=== PATIENT | female | born 2000 | race African-American/Black ===

== ENCOUNTER 2020-01-12 01:13 | Emergency (ER) | payer OTHER, MEDICAID ==
--- NOTE | 2020-01-12 01:48 | EDM.PDOCBH ---
ED HPI GENERAL MEDICAL PROBLEM - General Chief Complaint: Behavioral/Psych Stated Complaint: [facility] Time Seen by Provider: 01/12/20 01:21 Source of Information: Reports: Patient History Limitations: Reports: No Limitations - History of Present Illness INITIAL COMMENTS - FREE TEXT/NARRATIVE: Ms. Bartholomew is a pleasant 19-year-old woman with a past medical history significant for depression, social anxiety, and ADHD, who is now brought to the ED by EMS for a suicide attempt. 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 She is living on her own while out here and states that her aloneness has given her more time to think about suicide. She states that she took 7 or 8 tablets of her prescribed guanfa cine around 22:30 this evening. She states directly that she did so "to try to kill myself". She states that she then met with some friends who noticed that she seemed depressed, therefore they recommended that they go to a comedy show, which she did. She states that the combination of did not share her up. When she returned home, she states that she then texted her friends and parents about what she did. A friend subsequently called 911. The patient states that she has attempted suicide about 6 times in the past, primarily by taking an overdose of pills, but also by cutting. She has not, however, ever been psychiatrically hospitalized. Here in the ED, the patient is found to be hemodynamically stable, afebrile, saturating 99% on room air. Other than her psychiatric issues, the patient denies recent fever, chills, sore throat, ear pain, nasal or sinus congestion, cough, dyspnea, chest pain, palpitations, nausea, vomiting, constipation, diarrhea, abdominal pain, urinary symptoms, recent weight gain or weight loss, recent bloody bowel movements or black bowel movements, recent joint aches, headaches, or rashes. The patient's PCP and counselor are in [place]. She does not have a PCP or counselor in this area. Chest Pain Score (Numeric/FACES): 6 - Related Data Allergies Allergy/AdvReac Type Severity Reaction Status Date / Time No Known Allergies Allergy Verified 01/12/20 01:25 Home Meds: Home Meds Melatonin 5 mg PO BEDTIME 01/12/20 [History] QUEtiapine Fumarate [Seroquel] 25 mg PO BEDTIME 01/12/20 [History] guanFACINE 4 mg PO DAILY 01/12/20 [History] Past Medical History Psychiatric History: Reports: ADHD, Anxiety, Depression Social & Family History - Tobacco Use Smoking Status *Q: Never Smoker Second Hand Smoke Exposure: No - Caffeine Use Caffeine Use: Reports: Coffee, Soda - Alcohol Use Alcohol Use History: No - Recreational Drug Use Recreational Drug Use: No - Living Situation & Occupation Living situation: Reports: Single, Alone 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 ED EXAM, BEHAVIORAL HEALTH - Physical Exam Exam: See Below Exam Limited By: No Limitations General Appearance: Alert, WD/WN, No Apparent Distress Eye Exam: Bilateral Eye: EOMI, Normal Inspection Ears: Normal External Exam, Hearing Grossly Normal Nose: Normal Inspection Throat/Mouth: Normal Inspection, Normal Lips, Normal Voice, No Airway Compromise Head: Atraumatic, Normocephalic Neck: Normal Inspection, Full Range of Motion Respiratory/Chest: No Respiratory Distress, Lungs Clear, Normal Breath Sounds, No Accessory Muscle Use Cardiovascular: Normal Peripheral Pulses, Regular Rate, Rhythm, No Edema, No Gallop, No JVD, No Murmur, No Rub GI/Abdominal: Normal Bowel Sounds, Soft, Non-Tender, No Organomegaly, No Distention, No Abnormal Bruit, No Mass (Female) Exam: Deferred Rectal (Female) Exam: Deferred Back Exam: Normal Inspection, Full Range of Motion, NT Extremities: Normal Range of Motion, No Pedal Edema, Normal Capillary Refill, Other (Several well-healed short and narrow tangential linear scars on the dorsal aspect of both of her forearms) Neurological: Alert, Normal Cognition, No Motor/Sensory Deficits, Oriented x 3 Psychiatric: Normal Affect Skin Exam: Warm, Dry, Intact, Normal color, No rash EKG INTERPRETATION EKG Date: 01/12/20 Time: 01:19 Rhythm: NSR (with respiratory variation) Rate (Beats/Min): 70 [place]: Normal P-Wave: Present QRS: Normal ST-T: Normal QT: Normal Comparison: NA - No Prior EKG COURSE, BEHAVIORAL HEALTH COMP - Course Vital Signs: Last Vital Signs Temp 36.3 C 07/24/20 08:27 Pulse 55 L 01/12/20 08:27 Resp 12 01/12/20 08:27 BP 111/75 01/12/20 08:27 Pulse Ox 98 01/12/20 08:27 Orthostatic Blood Pressure [ 86/50 Standing] Orthostatic Blood Pressure [ 103/72 Sitting] Orthostatic Blood Pressure [ 111/80 Supine] Orders, Labs, Meds: Active Orders 24 hr Category Date Time Status EKG Documentation Completion [RC] STAT Care 01/12/20 01:28 Active Orthostatic Vital Signs [RC] STAT Care 01/12/20 08:18 Active FE, TIBC, TRANSFERRIN, FE SAT [CHEM] Stat Lab 01/12/20 08:36 Received FERRITIN [CHEM] Stat Lab 01/12/20 08:36 Received FOLIC ACID [CHEM] Stat Lab 01/12/20 08:36 Received LACTATE DEHYDROGENASE,LDH [CHEM] Stat Lab 01/12/20 08:36 Received VITAMIN B12 [CHEM] Stat Lab 01/12/20 08:36 Received Laboratory Tests 01/12/20 01/12/20 01/12/20 Range/Units 02:05 02:05 02:05 WBC 9.29 (3.98-10.04) K/mm3 RBC 3.61 L (3.98-5.22) M/mm3 Hgb 7.6 L (11.2-15.7) gm/dl Hct 25.8 L (34.1-44.9) % MCV 71.5 L (79.4-94.8) fl MCH 21.1 L (25.6-32.2) pg MCHC 29.5 L (32.2-35.5) g/dl RDW Std Deviation 42.7 (36.4-46.3) fL Plt Count 680 H (182-369) K/mm3 MPV 8.9 L (9.4-12.3) fl Neutrophils % (Manual) 73 H (40-60) % Band Neutrophils % 1 (0-10) % Lymphocytes % (Manual) 24 (20-40) % Atypical Lymphs % 0 % Monocytes % (Manual) 2 (2-10) % Eosinophils % (Manual) 0 L (0.7-5.8) % Basophils % (Manual) 0 L (0.1-1.2) Platelet Estimate Marked inc Plt Morphology Comment Normal Hypochromasia 2+ moderate Microcytosis 2+ moderate Target Cells 1+ slight Ovalocytes 1+ slight [place] Cells 1+ slight RBC Morph Comment Not Reportable Percent Retic (0.50-1.70) % Sodium 138 (136-145) mEq/L Potassium 3.3 L (3.5-5.1) mEq/L Chloride 102 (98-107) mEq/L Carbon Dioxide 27 (21-32) mEq/L Anion Gap 12.3 (5-15) BUN 12 (7-18) mg/dL Creatinine 0.7 (0.55-1.02) mg/dL Est Cr Clr Drug Dosing 111.62 mL/min Estimated GFR (MDRD) > 60 (>60) mL/min BUN/Creatinine Ratio 17.1 (14-18) Glucose 100 (74-106) mg/dL Calcium 8.6 (8.5-10.1) mg/dL Total Bilirubin 0.2 (0.2-1.0) mg/dL AST 42 H (15-37) U/L ALT 50 (14-59) U/L Alkaline Phosphatase 115 (46-116) U/L Total Protein 8.1 (6.4-8.2) g/dl Albumin 3.6 (3.4-5.0) g/dl Globulin 4.5 gm/dL Albumin/Globulin Ratio 0.8 L (1-2) TSH 3rd Generation 2.213 (0.516-4.13) uIU/mL Urine HCG, Qual (NEGATIVE) Salicylates 0.7 L (2.8-20) mg/dL Urine Opiates Screen (QNVXQF=694) Ur Buprenorphine Scrn (CUTOFF=10) Ur Oxycodone Screen (EKU4GY=549) Urine Methadone Screen (LBRNJM=527) Ur Propoxyphene Screen (WSVAAB=993) Acetaminophen 0 L (10-30) ug/mL Ur Barbiturates Screen (VFZUYV=614) Ur Tricyclics Screen (FRGMWS=654) Ur Phencyclidine Scrn (CUTOFF=25) Ur Amphetamine Screen (HKSOPJ=216) U Methamphetamines Scrn (ZDGNFB=884) U Benzodiazepines Scrn (GFAJIT=495) U Cocaine Metab Screen (GCUEAC=190) U Marijuana (THC) Screen (CUTOFF=50) Ethyl Alcohol 0.00 (0.00) gm% COVID-19 (MUNA) (NEGATIVE) 01/12/20 01/12/20 01/12/20 Range/Units 02:10 02:10 02:10 WBC (3.98-10.04) K/mm3 RBC (3.98-5.22) M/mm3 Hgb (11.2-15.7) gm/dl Hct (34.1-44.9) % MCV (79.4-94.8) fl MCH (25.6-32.2) pg MCHC (32.2-35.5) g/dl RDW Std Deviation (36.4-46.3) fL Plt Count (182-369) K/mm3 MPV (9.4-12.3) fl Neutrophils % (Manual) (40-60) % Band Neutrophils % (0-10) % Lymphocytes % (Manual) (20-40) % Atypical Lymphs % % Monocytes % (Manual) (2-10) % Eosinophils % (Manual) (0.7-5.8) % Basophils % (Manual) (0.1-1.2) Platelet Estimate Plt Morphology Comment Hypochromasia Microcytosis Target Cells Ovalocytes [place] Cells RBC Morph Comment Percent Retic (0.50-1.70) % Sodium (136-145) mEq/L Potassium (3.5-5.1) mEq/L Chloride (98-107) mEq/L Carbon Dioxide (21-32) mEq/L Anion Gap (5-15) BUN (7-18) mg/dL Creatinine (0.55-1.02) mg/dL Est Cr Clr Drug Dosing mL/min Estimated GFR (MDRD) (>60) mL/min BUN/Creatinine Ratio (14-18) Glucose (74-106) mg/dL Calcium (8.5-10.1) mg/dL Total Bilirubin (0.2-1.0) mg/dL AST (15-37) U/L ALT (14-59) U/L Alkaline Phosphatase (46-116) U/L Total Protein (6.4-8.2) g/dl Albumin (3.4-5.0) g/dl Globulin gm/dL Albumin/Globulin Ratio (1-2) TSH 3rd Generation (0.516-4.13) uIU/mL Urine HCG, Qual Negative (NEGATIVE) Salicylates (2.8-20) mg/dL Urine Opiates Screen Negative (SUFIKO=814) Ur Buprenorphine Scrn Negative (CUTOFF=10) Ur Oxycodone Screen Negative (EKH9ZU=825) Urine Methadone Screen Negative (WMKTJM=213) Ur Propoxyphene Screen Negative (DGNRAI=895) Acetaminophen (10-30) ug/mL Ur Barbiturates Screen Negative (FPLLQD=367) Ur Tricyclics Screen Presumptive positive H (WNBVGD=743) Ur Phencyclidine Scrn Negative (CUTOFF=25) Ur Amphetamine Screen Presumptive positive H (BJPTWC=155) U Methamphetamines Scrn Negative (PURHQY=282) U Benzodiazepines Scrn Negative (UIRSHK=487) U Cocaine Metab Screen Negative (PWPZFG=739) U Marijuana (THC) Screen Negative (CUTOFF=50) Ethyl Alcohol (0.00) gm% COVID-19 (MUNA) Negative (NEGATIVE) 01/12/20 Range/Units 08:36 WBC (3.98-10.04) K/mm3 RBC (3.98-5.22) M/mm3 Hgb (11.2-15.7) gm/dl Hct (34.1-44.9) % MCV (79.4-94.8) fl MCH (25.6-32.2) pg MCHC (32.2-35.5) g/dl RDW Std Deviation (36.4-46.3) fL Plt Count (182-369) K/mm3 MPV (9.4-12.3) fl Neutrophils % (Manual) (40-60) % Band Neutrophils % (0-10) % Lymphocytes % (Manual) (20-40) % Atypical Lymphs % % Monocytes % (Manual) (2-10) % Eosinophils % (Manual) (0.7-5.8) % Basophils % (Manual) (0.1-1.2) Platelet Estimate Plt Morphology Comment Hypochromasia Microcytosis Target Cells Ovalocytes [place] Cells RBC Morph Comment Percent Retic 0.76 (0.50-1.70) % Sodium (136-145) mEq/L Potassium (3.5-5.1) mEq/L Chloride (98-107) mEq/L Carbon Dioxide (21-32) mEq/L Anion Gap (5-15) BUN (7-18) mg/dL Creatinine (0.55-1.02) mg/dL Est Cr Clr Drug Dosing mL/min Estimated GFR (MDRD) (>60) mL/min BUN/Creatinine Ratio (14-18) Glucose (74-106) mg/dL Calcium (8.5-10.1) mg/dL Total Bilirubin (0.2-1.0) mg/dL AST (15-37) U/L ALT (14-59) U/L Alkaline Phosphatase (46-116) U/L Total Protein (6.4-8.2) g/dl Albumin (3.4-5.0) g/dl Globulin gm/dL Albumin/Globulin Ratio (1-2) TSH 3rd Generation (0.516-4.13) uIU/mL Urine HCG, Qual (NEGATIVE) Salicylates (2.8-20) mg/dL Urine Opiates Screen (QDCTHZ=306) Ur Buprenorphine Scrn (CUTOFF=10) Ur Oxycodone Screen (DIB7FJ=039) Urine Methadone Screen (QOHWDK=475) Ur Propoxyphene Screen (SXJJES=278) Acetaminophen (10-30) ug/mL Ur Barbiturates Screen (FXHZMK=478) Ur Tricyclics Screen (FWPPKW=956) Ur Phencyclidine Scrn (CUTOFF=25) Ur Amphetamine Screen (XLYTYN=040) U Methamphetamines Scrn (LFFUYX=662) U Benzodiazepines Scrn (QZMXTO=963) U Cocaine Metab Screen (GFHJNT=488) U Marijuana (THC) Screen (CUTOFF=50) Ethyl Alcohol (0.00) gm% COVID-19 (MUNA) (NEGATIVE) Medical Clearance: 01/12/20 01:43 As above, the patient states that she took 7 or 8 tablets of her prescribed guanfacine around 22:30, after which she went to a [employer] show, then when she returned home, she texted all of her friends and family about what she had done, virtually guaranteeing that 911 would be called, and that she would be rescued. Additionally, the patient does not seem to be depressed; she is alert, direct, looking me straight in the eye when she talks to me, whereas most patients who are suicidal appear sad and withdrawn. While she has a history of depression, anxiety, and ADHD, and she states that she has attempted suicide numerous times in the past, she has never been psychiatrically hospitalized, and her attempts at cutting herself as a suicide attempt appear to be rather minor, as the scars on the backs of her forearms appear to be from relatively superficial wounds (the scars are thin and short). I suspect that saurav's actions were less of a suicide attempt and more of an attempt to gain attention. Nevertheless, I have ordered a standard psychiatric medical clearance panel, as well as a test for the SARS-CoV-2 virus. Once she is medically cleared, we will contact a Psychiatrist. 01/12/20 03:05 The patient's CBC is remarkable for a H/H depressed at 7.6/25.8, and platelets elevated at 680,000. Her anemia is hypochromic, macrocytic. The remainder of her CBC is unremarkable. Her CMP is remarkable for a potassium slightly depressed at 3.3, and AST slightly elevated at 42, with an ALT normal at 50. The remainder of her CMP is unremarkable. Her TSH is within normal limits at 2.213. Her acetaminophen level is 0. Her salicylate level is within normal limits at 0.7. Her urine drug screen is positive for both tricyclic antidepressants and amphetamine, with the remainder of the urine drug screen being negative. Her urine test is negative. The test for the SARS-CoV-2 virus is negative. Quietapine is known to cause false positive tricyclic antidepressant and amphetamine results on urine drug screens. 01/12/20 03:28 Case discussed with Cassie at [facility] at 03:18. Case then discussed with Dr. Adrian, Psychiatrist at [facility] at 03:23. He stated that it appears that the patient has some personality issues. If the patient had friends or family to watch over her, he would be willing to have her evaluated as an outpatient, but because she is here alone, he thinks it would be safer to have her admitted to their unit so that she can be evaluated. I will therefore place the patient under 24-hour hold. 01/12/20 07:57 Notified by Pratibha MANN that a new Psychiatrist came on shift, and he reversed the acceptance, stating that the patient's anemia needs to be worked up prior to acceptance. 01/12/20 08:16 Case discussed with [facility] at 08:02. Case then discussed with Dr. Hutchison, Psychiatrist at [facility], at 08:13. She felt that the cause of the patient's anemia would also need to be determined prior to acceptance, stating that if the patient's hemoglobin were to drop below 7, then they would need to transfuse PRBCs, and that would not be possible on the psychiatric unit. She recommended that the patient be admitted to our medical floor for a work-up, then transferred to a psychiatric facility once her anemia situation was determined to be stable. I will therefore initiate an anemia work-up that includes orthostatics, and LDH, iron level, ferritin level, TIBC, percent saturation, reticulocyte count, folic acid level, and B12 level. 01/12/20 09:08 The patient is not orthostatic. The situation was discussed with Dr. Reddy. She then talked to the patient and discovered that the patient has had heavy menstrual periods for the past 4 months, soaking 5 pads a day instead of her usual 2. She feels that this is the most likely cause of the patient's anemia. I am told that Dr. Reddy subsequently spoke with Dr. Mendoza, the current Psychiatrist at [facility], and that he is now willing to accept the patient. Departure - Departure Time of Disposition: 09:15 Disposition: DC/Tfer to Psych Hosp/Unit 65 Condition: Good Clinical Impression: Suicide attempt by drug overdose, Anemia - Discharge Information *PRESCRIPTION DRUG MONITORING PROGRAM REVIEWED*: Not Applicable *COPY OF PRESCRIPTION DRUG MONITORING REPORT IN PATIENT [place]: Not Applicable Referrals: PCP,Unknown [Ordering Only Provider] - Forms: ED Department Discharge Sepsis Event Note (ED) - Evaluation Sepsis Screening Result: No Definite Risk - Focused Exam Vital Signs: Vital Signs Temp Pulse Resp BP Pulse Ox 01/12/20 08:27 36.3 C 55 L 12 111/75 98 01/12/20 06:30 54 L 16 01/12/20 05:56 57 L 16 98 01/12/20 04:38 60 16 01/12/20 01:19 36.2 C 71 12 122/72 99 - My Orders Last 24 Hours: My Active Orders 01/12/20 01:28 EKG Documentation Completion [RC] STAT 01/12/20 08:18 Orthostatic Vital Signs [RC] STAT 01/12/20 08:36 FE, TIBC, TRANSFERRIN, FE SAT [CHEM] Stat FERRITIN [CHEM] Stat FOLIC ACID [CHEM] Stat LACTATE DEHYDROGENASE,LDH [CHEM] Stat VITAMIN B12 [CHEM] Stat - Assessment/Plan Last 24 Hours: My Active Orders 01/12/20 01:28 EKG Documentation Completion [RC] STAT 01/12/20 08:18 Orthostatic Vital Signs [RC] STAT 01/12/20 08:36 FE, TIBC, TRANSFERRIN, FE SAT [CHEM] Stat FERRITIN [CHEM] Stat FOLIC ACID [CHEM] Stat LACTATE DEHYDROGENASE,LDH [CHEM] Stat VITAMIN B12 [CHEM] Stat
[2020-01-12 02:54] LABS: ACETAMINOPHEN 0 ug/mL (10-30)
== END 2020-01-12 10:17 ==
LOC: JD.ED 01:13
DX: T46.5X2A Poisoning by other antihypertensive drugs, intentional self-harm, initial encounter (principal); D64.9 Anemia, unspecified; F90.9 Attention-deficit hyperactivity disorder, unspecified type; F41.9 Anxiety disorder, unspecified; F32.9 Major depressive disorder, single episode, unspecified; Z20.828 Contact with and (suspected) exposure to other viral communicable diseases; Z79.899 Other long term (current) drug therapy
CPT/HCPCS: 36415; 80053; 80306; 80307; 81025; 82607; 82728; 82746; 83540; 83615; 84443; 84466; 85007; 85027; 85045; 93005; 93010; 99285; 99285-25; U0002